=== PATIENT | female | born 1965 | race American Indian/Alaskan Native ===

== ENCOUNTER 2017-09-05 05:26 | Emergency (ER) | payer MEDICAID, MEDICARE ==
[2017-09-05 06:43] LABS: Hematocrit 34.2 % (30.3-42.9); Hemoglobin 11.4 gm/dl (10.1-14.3); Mean Corpuscular HGB Conc 34 % (30-34); Mean Corpuscular Hemoglobin 31 pg (28-32); Mean Corpuscular Volume 92 fl (79-97); Platelet Count 256 K/mm3 (140-440); Red Blood Count 3.73 M/mm3 (3.65-5.03); White Blood Count 7.8 K/mm3 (4.5-11.0)
[2017-09-05 06:50] VITALS: BP 137/80
[2017-09-05 07:01] LABS: Anion Gap 16 mmol/L; BUN/Creatinine Ratio 28; Blood Urea Nitrogen 11 mg/dL (7-17); Carbon Dioxide 27 mmol/L (22-30); Chloride 103.2 mmol/L (98-107); Creatine Kinase 419 units/L (30-135); Glucose 114 mg/dL (65-100); Potassium 3.9 mmol/L (3.6-5.0); Sodium 142 mmol/L (137-145)
== END 2017-09-05 06:25 | disposition left against medical advice (07) ==
LOC: ED 05:26
DX: M79.673 Pain in unspecified foot (principal); Z53.21 Procedure and treatment not carried out due to patient leaving prior to being seen by health care provider
CPT/HCPCS: 36415; 80048; 82550; 85027; 87040

== ENCOUNTER 2020-02-06 20:28 | Emergency (ER) | payer SELFPAY ==
[2020-02-06] MEDS ORDERED: SODIUM CHLORIDE 0.9% 1000 ML 1,000 ML IV ONE (23:11)
--- NOTE | 2020-02-06 23:32 | Emergency Department Report ---
ED Female HPI - General Chief complaint: Urogenital-Female Stated complaint: VAGINAL ITCHING Time Seen by Provider: 02/06/20 23:09 Source: patient Mode of arrival: Ambulatory Limitations: No Limitations - History of Present Illness Initial comments: Ms. Mejia is a 54-year-old homeless -[place] female. Who presents for vaginal itching. Abdominal cramping x3 days she denies vaginal discharge no vaginal bleeding. No back pain dysuria or frequency. Patient does endorse occasional EtOH. Denies other substance. She denies fevers or chills, no nausea vomiting. Onset/Timin -: days(s) Location: suprapubic Radiation: non-radiating Severity: moderate Severity scale (0 -10): 4 Quality: cramping Consistency: constant Improves with: none Worsens with: none Are you Now?: No Associated Symptoms: abdominal pain. denies: vaginal discharge, vaginal bleeding, nausea/vomiting, dysuria - Related Data Sexually active: No Previous Rx's Medication Instructions Recorded Last Taken Type Sulfamethoxazole/Trimethoprim 1 each PO BID #14 tablet 04/26/14 Unknown Rx [Bactrim Ds] metroNIDAZOLE [Flagyl] 500 mg PO BID 7 Days #14 tab 02/07/20 Unknown Rx Allergies Allergy/AdvReac Type Severity Reaction Status Date / Time No Known Allergies Allergy Verified 04/26/14 13:53 ED Review of Systems ROS: Stated complaint: VAGINAL ITCHING Other details as noted in HPI Constitutional: denies: chills, fever Eyes: denies: eye pain, eye discharge, vision change ENT: denies: ear pain, throat pain Respiratory: denies: cough, shortness of breath, wheezing Cardiovascular: denies: chest pain, palpitations Endocrine: no symptoms reported Gastrointestinal: abdominal pain. denies: nausea, vomiting, diarrhea, consti pation, melena Genitourinary: denies: urgency, dysuria, frequency, hematuria, discharge Musculoskeletal: denies: back pain, joint swelling, arthralgia Skin: as per HPI Neurological: denies: headache, weakness, paresthesias Psychiatric: denies: anxiety, depression Hematological/Lymphatic: denies: easy bleeding, easy bruising ED Past Medical Hx - Past Medical History Additional medical history: ANEMIA - Social History Smoking Status: Current Every Day Smoker - Medications Home Medications: Home Medications Medication Instructions Recorded Confirmed Last Taken Type Sulfamethoxazole/Trimethoprim 1 each PO BID #14 tablet 04/26/14 Unknown Rx [Bactrim Ds] metroNIDAZOLE [Flagyl] 500 mg PO BID 7 Days #14 tab 02/07/20 Unknown Rx ED Physical Exam - General Limitations: No Limitations General appearance: alert, in no apparent distress - Head Head exam: Present: atraumatic, normocephalic - Eye Eye exam: Present: normal appearance - ENT ENT exam: Present: mucous membranes moist - Neck Neck exam: Present: normal inspection, full ROM (Pain and). Absent: tenderness - Respiratory Respiratory exam: Present: normal lung sounds bilaterally. Absent: respiratory distress, wheezes, stridor - Cardiovascular Cardiovascular Exam: Present: regular rate, normal rhythm, normal heart sounds. Absent: systolic murmur, diastolic murmur, rubs, gallop - GI/Abdominal GI/Abdominal exam: Present: soft, normal bowel sounds. Absent: distended, tenderness, guarding, rebound, rigid, bruit, hernia - Rectal Rectal exam: Present: deferred - Extremities Exam Extremities exam: Present: normal inspection, full ROM, normal capillary refill. Absent: tenderness - Back Exam Back exam: Present: normal inspection, full ROM. Absent: tenderness (Exam), CVA tenderness (R), CVA tenderness (L), vertebral tenderness, rash noted - Neurological Exam Neurological exam: Present: alert, oriented X3, CN II-XII intact, normal gait - Psychiatric Psychiatric exam: Present: normal affect, normal mood - Skin Skin exam: Present: warm, dry, intact, normal color. Absent: rash ED Course Vital Signs 02/06/20 02/07/20 21:22 01:59 Temperature 98.9 F 98.7 F Pulse Rate 120 H 96 H Respiratory 20 18 Rate Blood Pressure 114/46 Blood Pressure 147/75 [Left] O2 Sat by Pulse 99 93 Oximetry ED Medical Decision Making - Lab Data Result diagrams: 02/06/20 23:21 02/07/20 00:32 Labs 02/06/20 02/06/20 02/06/20 23:13 23:21 23:21 WBC 11.4 H RBC 3.95 Hgb 11.1 Hct 34.8 MCV 88 MCH 28 MCHC 32 RDW 14.7 Plt Count 408 Lymph % (Auto) 19.6 Woodruff % (Auto) 6.6 Eos % (Auto) 1.3 Baso % (Auto) 1.2 Lymph # 2.2 Woodruff # 0.8 Eos # 0.2 Baso # 0.1 Seg Neutrophils % 71.3 H Seg Neutrophils # 8.1 H VBG pH Sodium TNR Potassium TNR Chloride TNR Carbon Dioxide TNR Anion Gap TNR BUN TNR Creatinine TNR Estimated GFR TNR BUN/Creatinine Ratio TNR Glucose TNR POC Glucose Calcium TNR Total Bilirubin TNR Direct Bilirubin Indirect Bilirubin AST TNR ALT TNR Alkaline Phosphatase TNR Total Protein TNR Albumin TNR Albumin/Globulin Ratio TNR Lipase TNR Urine Color Colorless Urine Turbidity Clear Urine pH 7.0 Ur Specific [place] 1.026 Urine Protein <15 mg/dl Urine Glucose (UA) >=500 Urine Ketones Neg Urine Blood Neg Urine Nitrite Neg Urine Bilirubin Neg Urine Urobilinogen < 2.0 Ur Leukocyte Esterase Neg Urine WBC (Auto) < 1.0 Urine RBC (Auto) 4.0 U Epithel Cells (Auto) 1.0 Urine Yeast (Budding) 2+ 02/07/20 02/07/20 02/07/20 00:32 01:23 01:23 WBC RBC Hgb Hct MCV MCH MCHC RDW Plt Count Lymph % (Auto) Woodruff % (Auto) Eos % (Auto) Baso % (Auto) Lymph # Woodruff # Eos # Baso # Seg Neutrophils % Seg Neutrophils # VBG pH 7.380 Sodium 134 L Potassium 4.6 Chloride 96.4 L Carbon Dioxide 24 Anion Gap 18 BUN 11 Creatinine 0.7 Estimated GFR > 60 BUN/Creatinine Ratio 16 Glucose 503 H* POC Glucose Calcium 9.4 Total Bilirubin 0.30 Direct Bilirubin < 0.2 Indirect Bilirubin 0.1 AST 13 ALT 11 Alkaline Phosphatase 103 Total Protein 7.0 Albumin 3.3 L Albumin/Globulin Ratio 0.9 Lipase 95 H 93 H Urine Color Urine Turbidity Urine pH Ur Specific [place] Urine Protein Urine Glucose (UA) Urine Ketones Urine Blood Urine Nitrite Urine Bilirubin Urine Urobilinogen Ur Leukocyte Esterase Urine WBC (Auto) Urine RBC (Auto) U Epithel Cells (Auto) Urine Yeast (Budding) 02/07/20 02:26 WBC RBC Hgb Hct MCV MCH MCHC RDW Plt Count Lymph % (Auto) Woodruff % (Auto) Eos % (Auto) Baso % (Auto) Lymph # Woodruff # Eos # Baso # Seg Neutrophils % Seg Neutrophils # VBG pH Sodium Potassium Chloride Carbon Dioxide Anion Gap BUN Creatinine Estimated GFR BUN/Creatinine Ratio Glucose POC Glucose 398 H Calcium Total Bilirubin Direct Bilirubin Indirect Bilirubin AST ALT Alkaline Phosphatase Total Protein Albumin Albumin/Globulin Ratio Lipase Urine Color Urine Turbidity Urine pH Ur Specific [place] Urine Protein Urine Glucose (UA) Urine Ketones Urine Blood Urine Nitrite Urine Bilirubin Urine Urobilinogen Ur Leukocyte Esterase Urine WBC (Auto) Urine RBC (Auto) U Epithel Cells (Auto) Urine Yeast (Budding) - EKG Data EKG shows normal: sinus rhythm Rate: tachycardia - EKG Data Interpretation: normal EKG (ST no ST Elevated ID, interp by ed attending) - Medical Decision Making Symptoms are improved. There is no fever or chills no abdominal pain no nausea vomiting no back pain at this time. Patient denies vaginal discharge or vaginal bleeding. Plan DC to home. Patient will continue to hydrate as directed follow-up with PCP in 2 to 3 days ,patient verbalized agreement and understanding with discharge plan.Wiill note accucheck prior to d/c to home Critical care attestation.: If time is entered above; I have spent that time in minutes in the direct care of this critically ill patient, excluding procedure time. ED Disposition Clinical Impression: Hyperglycemia, Dehydration Vaginitis Qualifiers: Chronicity: acute Qualified Code(s): N76.0 - Acute vaginitis Disposition: DC-01 TO HOME OR SELFCARE Is pt being admited?: No Does the pt Need Aspirin: No Condition: Stable Instructions: Dehydration (ED), Diabetic Hyperglycemia (ED) Prescriptions: metroNIDAZOLE [Flagyl] 500 mg PO BID 7 Days #14 tab Referrals: [facility] [Provider Group] - 3-5 Days Forms: Work/School Release Form(ED) Time of Disposition: 04:00
[2020-02-06 23:41] LABS: Basophils # (Auto) 0.1 K/mm3 (0.0-0.1); Basophils % (Auto) 1.2 % (0.0-1.8); Eosinophils # (Auto) 0.2 K/mm3 (0.0-0.4); Eosinophils % (Auto) 1.3 % (0.0-4.3); Hematocrit 34.8 % (30.3-42.9); Hemoglobin 11.1 gm/dl (10.1-14.3); Lymphocytes # (Auto) 2.2 K/mm3 (1.2-5.4); Lymphocytes % (Auto) 19.6 % (13.4-35.0); Mean Corpuscular HGB Conc 32 % (30-34); Mean Corpuscular Volume 88 fl (79-97); Monocytes # (Auto) 0.8 K/mm3 (0.0-0.8); Monocytes % (Auto) 6.6 % (0.0-7.3); Platelet Count 408 K/mm3 (140-440); Red Blood Count 3.95 M/mm3 (3.65-5.03); Red Cell Distribution Width 14.7 % (13.2-15.2)
[2020-02-06 23:49] LABS: Bilirubin,Urine NEG (Negative); Blood,Urine NEG (Negative); Color,Urine Colorless (Yellow); Protein,Urine <15 mg/dL mg/dL (Negative); Urobilinogen,Urine < 2.0 mg/dL (<2.0); WBC,Urine < 1.0 /HPF (0.0-6.0)
[2020-02-07 00:27] LABS: BUN/Creatinine Ratio TNR; Blood Urea Nitrogen TNR mg/dL (7-17)
[2020-02-07 00:28] LABS: Albumin TNR g/dL (3.9-5); Calcium TNR mg/dL (8.4-10.2); Hemolysis Index TNR
[2020-02-07 00:29] LABS: Alanine Aminotransferase TNR units/L (7-56)
[2020-02-07 01:08] LABS: BUN/Creatinine Ratio 16; Blood Urea Nitrogen 11 mg/dL (7-17); Calcium 9.4 mg/dL (8.4-10.2); Hemolysis Index 2
[2020-02-07] MEDS ORDERED: SODIUM CHLORIDE 0.9% 1000 ML 1,000 ML IV ONE (01:16)
[2020-02-07] MEDS ORDERED: diphenhydrAMINE 50 MG/ML VIAL IV ONE (01:38)
[2020-02-07 02:00] VITALS: BP 147/75
[2020-02-07 02:00] LABS: Alanine Aminotransferase 11 units/L (7-56); Albumin 3.3 g/dL (3.9-5)
[2020-02-07] MEDS ORDERED: FLUCONAZOLE 200 MG TAB PO ONE (02:00)
[2020-02-07 02:01] LABS: Bilirubin,Direct < 0.2 mg/dL (0-0.2)
[2020-02-07] MEDS ORDERED: INSULIN NPH/REGULAR 70/30 INJ SUB-Q ONE (02:49)
== END 2020-02-07 04:46 | disposition home or self-care (01) ==
LOC: ED 20:28
DX: N76.0 Acute vaginitis (principal); R73.9 Hyperglycemia, unspecified; E86.0 Dehydration; D64.9 Anemia, unspecified; F17.200 Nicotine dependence, unspecified, uncomplicated; Z79.899 Other long term (current) drug therapy
CPT/HCPCS: 36415; 80048; 80053; 80076; 81001; 82805; 82962; 83690; 85025; 93005; 96360; 96361; 99283; J7030; J1815

== ENCOUNTER 2020-05-30 13:28 | Emergency (ER) | payer SELFPAY ==
[2020-05-30 14:09] VITALS: BP 122/85
== END 2020-05-30 14:00 | disposition left against medical advice (07) ==
LOC: ED 13:28
DX: F43.9 Reaction to severe stress, unspecified (principal); Z53.21 Procedure and treatment not carried out due to patient leaving prior to being seen by health care provider

== ENCOUNTER 2021-10-21 08:48 | Emergency (ER) | payer MEDICARE ==
--- NOTE | 2021-10-21 10:14 | Emergency Department Report ---
ED General Adult HPI - General Chief complaint: Hyperglycemia Stated complaint: AMS/Hyperglycemia Time Seen by Provider: 10/21/21 10:01 Source: EMS Mode of arrival: Stretcher Limitations: No Limitations, Altered Mental Status - History of Present Illness Initial comments: Patient presents by ambulance secondary to hypoglycemia. Apparently police were on scene. The patient was in [facility] and seemed to be yelling. There was some thought that she was altered. EMS got the patient in the back of her ambulance. They admitted that she was hyperglycemic, but she was calm and cooperative for them. Upon arrival here, patient states that she is homeless. She has no family. She states that she is tired of people being "in her business." She states that lots of people have been "telling lies on her and she just wants to be left alone." She denies chest pain or back pain. She has no fever. She admits that she is diabetic but is not on any medication for this. Patient states that she just wishes people would stay out of her business. - Related Data Previous Rx's Medication Instructions Recorded Last Taken Type Sulfamethoxazole/Trimethoprim 1 each PO BID #14 tablet 04/26/14 Unknown Rx [Bactrim Ds] metroNIDAZOLE [Flagyl] 500 mg PO BID 7 Days #14 tab 02/07/20 Unknown Rx Allergies Allergy/AdvReac Type Severity Reaction Status Date / Time No Known Allergies Allergy Verified 04/26/14 13:53 ED Review of Systems ROS: Stated complaint: AMS/Hyperglycemia Other details as noted in HPI Comment: All other systems reviewed and negative Constitutional: denies: fever Eyes: denies: vision change ENT: denies: throat pain Respiratory: denies: cough Cardiovascular: denies: chest pain Endocrine: denies: unexplained weight loss Gastrointestinal: denies: abdominal pain Genitourinary: denies: dysuria Musculoskeletal: denies: back pain Skin: denies: rash Neurological: denies: headache Psychiatric: denies: suicidal thoughts Hematological/Lymphatic: denies: easy bruising ED Past Medical Hx - Past Medical History Previous Medical History?: Yes Hx Diabetes: Yes Additional medical history: ANEMIA - Family History Family history: diabetes - Social History Smoking Status: Current Every Day Smoker Substance Use Type: None - Medications Home Medications: Home Medications Medication Instructions Recorded Confirmed Last Taken Type Sulfamethoxazole/Trimethoprim 1 each PO BID #14 tablet 04/26/14 Unknown Rx [Bactrim Ds] metroNIDAZOLE [Flagyl] 500 mg PO BID 7 Days #14 tab 02/07/20 Unknown Rx ED Physical Exam - General Limitations: No Limitations, Other (Pulse ox normal at 95%) General appearance: alert, in no apparent distress, other (Patient does become loud when she talks about people bothering her. She is otherwise oriented and lucid.) - Head Head exam: Present: atraumatic, normocephalic - Eye Eye exam: Present: normal appearance, EOMI. Absent: scleral icterus - ENT ENT exam: Present: mucous membranes dry, normal external ear exam - Neck Neck exam: Present: normal inspection. Absent: meningismus - Respiratory Respiratory exam: Present: normal lung sounds bilaterally. Absent: respiratory distress - Cardiovascular Cardiovascular Exam: Present: regular rate, normal rhythm - GI/Abdominal GI/Abdominal exam: Present: soft. Absent: distended, tenderness - Extremities Exam Extremities exam: Present: normal capillary refill - Back Exam Back exam: Absent: CVA tenderness (R), CVA tenderness (L) - Neurological Exam Neurological exam: Present: alert, oriented X3, CN II-XII intact, normal gait. Absent: motor sensory deficit - Psychiatric Psychiatric exam: Present: normal affect, normal mood - Skin Skin exam: Present: warm, dry ED Course Vital Signs 10/21/21 10/21/21 10/21/21 08:52 09:28 09:29 Temperature 98.9 F 98.7 F Pulse Rate 92 H Respiratory 16 15 Rate Blood Pressure Blood Pressure 127/84 [Right] O2 Sat by Pulse 95 Oximetry 10/21/21 10/21/21 10/21/21 09:30 09:46 10:00 Temperature Pulse Rate 91 H 83 111 H Respiratory 22 17 29 H Rate Blood Pressure 116/68 116/68 112/93 Blood Pressure [Right] O2 Sat by Pulse 100 100 99 Oximetry 10/21/21 10/21/21 10/21/21 10:16 10:28 10:30 Temperature 98.2 F Pulse Rate 88 83 Respiratory 22 20 Rate Blood Pressure 112/93 132/83 Blood Pressure [Right] O2 Sat by Pulse 100 70 L Oximetry 10/21/21 10/21/21 10/21/21 10:46 11:00 11:16 Temperature Pulse Rate 83 84 89 Respiratory 18 19 20 Rate Blood Pressure 132/83 129/69 129/69 Blood Pressure [Right] O2 Sat by Pulse 100 100 100 Oximetry 10/21/21 10/21/21 10/21/21 11:30 11:46 12:00 Temperature Pulse Rate 103 H 88 90 Respiratory 30 H 19 19 Rate Blood Pressure 146/88 146/88 133/84 Blood Pressure [Right] O2 Sat by Pulse 100 100 99 Oximetry 10/21/21 10/21/21 10/21/21 12:16 12:30 12:46 Temperature Pulse Rate 78 75 74 Respiratory 16 14 13 Rate Blood Pressure 133/84 113/73 113/73 Blood Pressure [Right] O2 Sat by Pulse 100 100 Oximetry 10/21/21 10/21/21 10/21/21 13:00 13:16 13:30 Temperature Pulse Rate 76 76 79 Respiratory 12 17 14 Rate Blood Pressure 108/63 108/63 92/61 Blood Pressure [Right] O2 Sat by Pulse 100 100 100 Oximetry 10/21/21 10/21/21 10/21/21 13:46 14:00 14:16 Temperature Pulse Rate 92 H 80 85 Respiratory 21 16 14 Rate Blood Pressure 92/61 107/68 107/68 Blood Pressure [Right] O2 Sat by Pulse 100 100 100 Oximetry 10/21/21 14:30 Temperature Pulse Rate 90 Respiratory 22 Rate Blood Pressure 102/74 Blood Pressure [Right] O2 Sat by Pulse 100 Oximetry - Reevaluation(s) Reevaluation #1: 10/21/21 10:14 IV labs ordered. Old records noted. Reevaluation #2: 10/21/21 11:49 Patient could not have IV established. She was stuck multiple times and then refused any more sticks. She agreed to insulin subcu and oral fluids. Labs are still pending. Reevaluation #3: 10/21/21 15:33 Labs are still pending. Care was signed out. ED Medical Decision Making - Lab Data Result diagrams: 10/21/21 14:38 10/21/21 14:38 - Medical Decision Making Patient presents with reports of altered mental status, although she is not al tered here. Patient also is hyperglycemic. She is known to be noncompliant. We will not start medications as the patient states frankly that she will not take them. She states that she would rather follow-up with a regular doctor. This can be completed. I do not believe the patient would require admission at this time. Critical Care Time: No Critical care attestation.: If time is entered above; I have spent that time in minutes in the direct care of this critically ill patient, excluding procedure time. ED Disposition Clinical Impression: Uncontrolled diabetes mellitus with hyperglycemia Qualifiers: Diabetes mellitus type: other specified (including [place]RIA) Qualified Code(s): E13.65 - Other specified diabetes mellitus with hyperglycemia Disposition: HOME / SELF CARE / HOMELESS Is pt being admited?: No Condition: Stable Instructions: Diabetes Mellitus Type 2 in Adults (ED), Diabetes Mellitus and Sick Day Management, Complementary and Alternative Medical Therapies for Diabetes, Hyperglycemia, [id number] Additional Instructions: Drink any water. Return for problems. Follow-up with a regular doctor for r echeck and further management. Referrals: PRIMARY CAREMD [Primary Care Provider] - 3-5 Days TRACY CINTRON MD [Staff Physician] - 3-5 Days
[2021-10-21] MEDS ORDERED: SODIUM CHLORIDE 0.9% 1000 ML 1,000 ML IV ONE (10:15)
[2021-10-21] MEDS ORDERED: INSULIN REGULAR, HUMAN 100 UNITS/1 ML IV ONE (10:15)
[2021-10-21 14:39] VITALS: BP 102/74
[2021-10-21 14:57] LABS: Hematocrit 40.1 % (30.3-42.9); Hemoglobin 13.6 gm/dl (10.1-14.3); Mean Corpuscular HGB Conc 34 % (30-34); Mean Corpuscular Volume 87 fl (79-97); Platelet Count 267 K/mm3 (140-440); Red Cell Distribution Width 13.1 % (13.2-15.2)
[2021-10-21 15:20] LABS: Alanine Aminotransferase 10 units/L (7-56); Albumin 3.9 g/dL (3.9-5); Blood Urea Nitrogen 10 mg/dL (7-17); Calcium 9.1 mg/dL (8.4-10.2); Hemolysis Index 39
[2021-10-21 15:33] LABS: BUN/Creatinine Ratio 17
== END 2021-10-21 17:39 | disposition home or self-care (01) ==
LOC: ED 08:48
DX: E11.65 Type 2 diabetes mellitus with hyperglycemia (principal); F17.200 Nicotine dependence, unspecified, uncomplicated; Z79.899 Other long term (current) drug therapy
CPT/HCPCS: 36415; 80053; 80320; 82805; 82962; 85027; 96374; 99284; Q9967; G0480; J1815

== ENCOUNTER 2021-10-25 12:40 | Emergency (ER) | payer MEDICARE ==
[2021-10-25 12:43] VITALS: BP 132/68
--- NOTE | 2021-10-25 14:39 | Event Note ---
ED Screening Note ED Screening Note: brought to er via ems found down in yard this has happened in the past appears intoxicated no si no hi ambulatory with no focal def This initial assessment/diagnostic orders/clinical plan/treatment(s) is/are subject to change based on patients health status, clinical progression and re- assessment by fellow clinical providers in the ED. Further treatment and workup at subsequent clinical providers discretion. Patient/guardian urged not to elope from the ED as their condition may be serious if not clinically assessed and managed. Initial orders include: ro metabolic derangement v substance
--- NOTE | 2021-10-25 16:53 | Emergency Department Report ---
Blank Doc - Documentation Documentation: I did not have any contact with this patient.
== END 2021-10-25 18:49 | disposition left against medical advice (07) ==
LOC: ED 12:40
DX: R41.82 Altered mental status, unspecified (principal); Z53.21 Procedure and treatment not carried out due to patient leaving prior to being seen by health care provider

== ENCOUNTER 2021-10-27 03:52 | Emergency (ER) | payer MEDICARE | END 2021-10-27 05:37 | disposition left against medical advice (07) | LOC: ED 03:52 | DX: M79.18 Myalgia, other site (principal); Z53.21 Procedure and treatment not carried out due to patient leaving prior to being seen by health care provider ==